=== PATIENT | female | born 1960 | race Caucasian/White ===

== ENCOUNTER → 2018-05-10 | Outpatient (CLI) | payer OTHER, BC ==
[~2018-05-10] VITALS: Ht 165.1 cm; Wt 110.7 kg
[~2018-05-10] MED LIST: ASPIR 8181 MG PO; IBUPROFEN 800800 M1 PO; LIPITOR 20 MG T20 M1 PO; MAXZIDE-25 MG1 EACH PO; OMEGA-31000 M1 PO; OMEPRAZOLE20 M2 PO; ZYLOPRIM300 MG PO; ZYRTEC10 M4 PO
[2018-05-10 07:15] VITALS: BP 134/79
[2018-05-10 07:24] LABS: HEMATOCRIT 42.9 % (37.0-47.0); MCH 28.4 pg (26.0-34.0); MCHC 32.7 g/dL (28.0-37.0); MCV 86.7 fL (80.0-100.0); RBC 4.95 mil/uL (4.20-5.00); RDW 15.7 % (10.5-14.5); WBC 5.6 thou/uL (4.0-11.0)
[2018-05-10 07:32] LABS: CALCIUM 9.5 mg/dL (8.5-10.1); POTASSIUM 3.3 mmol/L (3.5-5.1)
--- NOTE | 2018-05-10 08:22 | EKG ---
[place] [address] [address] [facility] [place] [address] ELECTROCARDIOGRAM REPORT Name: LOILOCLORRAINE Calhoun Room #: [facility]#: [id number] Admission: 05/10/18 Attend Phys: Jace Jiang MD, Discharge: Date of : 58 Report #: [id number] THIS REPORT FOR: //name// [facility] Test Date: 2018-05-10 Test Time: 07:26:08 Pat Name: LORRAINE PALACIOS Department: Room: Gender: F Battery Filler: Carlton BYRD : 1960 Requested By: Jace Jiang Order Number: [id number] MD: Corby Hirsch Measurements Intervals [place] Rate: 69 P: 28 MN: 198 QRS: -70 QRSD: 99 T: 24 QT: 418 QTc: 448 Interpretive Statements Sinus rhythm Left anterior fascicular block Abnormal R-wave progression, late transition No previous ECG available for comparison Electronically Signed On 05-10-2018 8:22:29 COMM[employer]ITY LIFE DIRECT[employer] by Corby Hirsch [email or web address] <ELECTRONICALLY SIGNED> By: Corby Hirsch MD, [facility] 05/10/18821 5 5 Corby Hirsch MD, [facility] /EPI
--- NOTE | 2018-05-10 14:55 | CATHLAB ---
[facility] [place] [address] INVASIVE PROCEDURE REPORT Name: LORRAINE PALACIOS [facility] [id number] Admission: 05/10/18 Attend Phys: Jace Jiang, Discharge: Date of : 58 Date of Service: 05/10/18 1455 Report #: [id number] THIS REPORT FOR: //name// APPROVED REPORT Study performed: 05/10/2018 07:33:37 Patient Details Patient Status: Out-Patient Room #: The patient is a 57 year-old female Event Personnel Jace Jiang Locksmith, Bernie Kunz RN RN, Rudi Skinner, Delmi Valle Monitor Procedures Performed Art Access - R femoral artery* 34781 Initial Mod Sed Same Phys/QHP Gr5y 538641 Left Heart Cath w/or w/o Coronaries [id number] C Hemostasis w/ Mynx Aortogram Abdominal Peripheral Angio [id number] Indication Chest pain Procedure Narrative The patient was brought electively to the Cardiac Catheterization Laboratory and was prepped and draped in a sterile manner. The Right Groin^ was infiltrated with 1% Lidocaine subcutaneous anesthesia. A PINNACLE 6FR Sheath #[id number] sheath was inserted into the RFA^. Coronary angiography was performed using coronary diagnostic catheters. The right coronary system was accessed and visualized with a JR 4 catheter. The left coronary system was accessed and visualized with a JL 4 catheter. The left ventricle was accessed and visualized with a Pigtail catheter. Left ventriculogram was performed in BAILEY projection. An aortogram of the abdominal aorta was performed. Pre-demployment femoral angiogram was performed . Closure device was deployed with a 6 Fr Mynx. The patient tolerated the procedure well and there were no complications associated with the procedure. There was no hematoma. Intraoperative Conscious Sedation Sedation start time: 08:41 Case end Time: 08:58 Fentanyl 50 mcg Versed 1 mg [facility] [place] [address] INVASIVE PROCEDURE REPORT Name: SUZANNELORRAINEJocelyn GIRON Room #: [facility] [id number] Admission: 05/10/18 Attend Phys: Jace Jiang, Discharge: Date of : 58 Date of Service: 05/10/18 1455 Report #: [id number] Fluoro Time: 1.30 minutes Dose: DAP 3723.00 cGycm2 423 mGy Contrast Type and Amount: Visipaque 125 ml Hemodynamics The aortic pressure is 143/71 mmHg with a mean of 105 mmHg. The left ventricular pressure is 162/1 mmHg with a mean of mmHg. The left ventricular end diastolic pressure is 13 mmHg. Conclusion #1 normal left ventricular size and systolic function EF 65% #2 abdominal aortogram revealing no evidence of aneurysm. Single bilateral renal arteries and iliac system widely patent #3 coronary anatomy is a right dominant system. There is mild irregularity in all 3 vessels. There is no significant occlusive disease noted. Recommendations and plan continue aggressive risk factor modification. No indication for coronary intervention. Regular aerobic activity and weight loss are strongly recommended. <ELECTRONICALLY SIGNED> By: Jace Jiang MD, [facility] 05/10/18 1455 1455 1455 Jace Jiang MD, FACC /INF
== END | disposition home or self-care (01) ==
LOC: CATH 06:57
PROVIDERS: Internal Medicine Cardiovascular Disease
DX: I25.10 Atherosclerotic heart disease of native coronary artery without angina pectoris (principal); I10 Essential (primary) hypertension; E11.9 Type 2 diabetes mellitus without complications; E78.5 Hyperlipidemia, unspecified; K21.9 Gastro-esophageal reflux disease without esophagitis; G47.33 Obstructive sleep apnea (adult) (pediatric); E66.09 Other obesity due to excess calories; Z86.010 Personal history of colon polyps; Z98.890 Other specified postprocedural states; Z79.899 Other long term (current) drug therapy; Z82.49 Family history of ischemic heart disease and other diseases of the circulatory system; Z87.891 Personal history of nicotine dependence; Z90.710 Acquired absence of both cervix and uterus; Z79.82 Long term (current) use of aspirin